=== PATIENT | female | born 1980 | race Caucasian/White ===

== ENCOUNTER 2020-07-10 16:15 | Emergency (ER) | payer OTHER ==
[~2020-07-10] VITALS: Ht 162.6 cm; Wt 70.3 kg
[2020-07-10] MEDS ORDERED: IBUP600 PO (17:55)
[2020-07-10] MEDS ORDERED: Prednisone50 MG PO (17:55)
== END 2020-07-10 18:24 | disposition home or self-care (01) ==
LOC: ER 16:15
DX: M54.12 Radiculopathy, cervical region (principal); Z88.0 Allergy status to penicillin
CPT/HCPCS: 73030; 96372; 99283-25; J1100; J1885

== ENCOUNTER 2021-06-28 06:45 | Emergency (ER) | payer BC, OTHER ==
[~2021-06-28] VITALS: Ht 162.6 cm; Wt 65.8 kg
[~2021-06-28 06:45] MED LIST: IBUP600 PO; Prednisone50 MG PO
[2021-06-28 07:24] LABS: Source, Urine Clean Catch
[2021-06-28 07:27] LABS: Appearance, Urine Clear (Clear); Bilirubin, Urine Neg (Neg); Blood, Urine 1+ (Neg); Color, Urine Yellow (P-Yellow); Glucose Qualitative, Urine Neg (Neg); Ketones, Urine Neg (Neg); Leukocyte Esterase, Urine Neg (Neg); Nitrite, Urine Neg (Neg); Protein, Urine Neg (Neg); Specific Gravity, Urine 1.015 (1.003-1.022); Urobilinogen, Urine NORM (Normal); pH, Urine 6.5 (5.0-8.0)
[2021-06-28 07:38] LABS: Squamous Epithelial Cells Mod /hpf (Few)
[2021-06-28 07:41] LABS: Bacteria Mod /hpf; Hyaline Casts 0-2 /lpf (0-2)
[2021-06-28] MEDS ORDERED: CIPR500 PO (08:50)
[2021-06-28] MEDS ORDERED: PHENA200 PO (08:53)
[2021-06-28] MEDS ORDERED: FLUC150A PO (08:53)
[2021-06-28] MEDS ORDERED: ONDA4ODT MM (08:53)
[2021-06-28] MEDS ORDERED: HYDR1TAB94 PO (08:53)
[2021-06-28] MEDS ORDERED: BUPROPION HCL200 M1 PO (09:04)
[2021-06-28] MEDS ORDERED: Lamictal150 MG PO (09:04)
[2021-06-28] MEDS ORDERED: GABA100 (09:04)
[2021-06-28] MEDS ORDERED: Adderall Xr 2020 MG PO (09:05)
[2021-06-28] MEDS ORDERED: LORA.5 PO (09:05)
[2021-06-28] MEDS ORDERED: VALTREX PO (09:05)
[2021-06-28] MEDS ORDERED: Cetirizine HCl10 MG PO (09:06)
[2021-06-28] MEDS ORDERED: Ventolin/Prove6.7 GM INH (09:06)
[2021-06-28] MEDS ORDERED: Cyclobenzaprine5 MG PO (09:06)
== END 2021-06-28 09:11 | disposition home or self-care (01) ==
LOC: ER 06:45
PROVIDERS: Emergency Medicine
DX: N12 Tubulo-interstitial nephritis, not specified as acute or chronic (principal); Z88.0 Allergy status to penicillin
CPT/HCPCS: 74176; 81001; 81025; 87086; 99284-25; A9270

== ENCOUNTER → 2022-05-27 | Outpatient (CLI) | payer OTHER ==
[~2022-05-27] MED LIST changes: +Adderall Xr 2020 MG PO; +BUPROPION HCL200 M1 PO; +CIPR500 PO; +Cetirizine HCl10 MG PO; +Cyclobenzaprine5 MG PO; +FLUC150A PO; +GABA100; +HYDR1TAB94 PO; +LORA.5 PO; +Lamictal150 MG PO; +ONDA4ODT MM; +PHENA200 PO; +VALTREX PO; +Ventolin/Prove6.7 GM INH
[2022-05-30 03:08] LABS: CHLAMYDIA TRACHOMATIS, NAA Negative (Negative); HPV 16 Negative (Negative); HPV 18 Negative (Negative); HPV OTHER HR TYPES Negative (Negative)
== END | disposition home or self-care (01) ==
LOC: LAB SHORT 16:35 → LAB 16:35
PROVIDERS: Obstetrics & Gynecology
DX: Z01.419 Encounter for gynecological examination (general) (routine) without abnormal findings (principal); Z11.9 Encounter for screening for infectious and parasitic diseases, unspecified; N93.9 Abnormal uterine and vaginal bleeding, unspecified; R10.2 Pelvic and perineal pain
CPT/HCPCS: 87491; 87591; 87624; G0145

== ENCOUNTER → 2022-11-06 | Outpatient (CLI) | payer OTHER ==
[2022-11-07 10:36] LABS: Candida species (DNA Probe) Negative (NEGATIVE); G. vaginalis (DNA Probe) Positive (NEGATIVE); T. vaginalis (DNA Probe) Negative (NEGATIVE)
== END | disposition home or self-care (01) ==
LOC: LAB 15:29 → LAB SHORT 15:29
PROVIDERS: Obstetrics & Gynecology
DX: N76.0 Acute vaginitis (principal)
CPT/HCPCS: 87480; 87510; 87660

== ENCOUNTER → 2024-06-27 | Outpatient (CLI) | payer OTHER ==
[2024-06-27 16:33] LABS: Bacterial Vaginosis PCR Negative (NEGATIVE); Candida glabrata-krusei, PCR NOT DETECTED (NOT DETECT)
[2024-06-27 17:07] LABS: Chlamydia Trachomatis Vaginal NOT DETECTED (NOT DETECT); Neisseria Gonorrhoea Vaginal NOT DETECTED (NOT DETECT)
[2024-06-27 17:25] LABS: Candida Group, PCR DETECTED (NOT DETECT)
[2024-06-30 03:50] LABS: MYCOPLASMA GENITALIUM BY PCR Not Detected; MYCOPLASMA HOMINIS BY PCR Not Detected; UREAPLASMA MYCOPLASMA SOURCE Urine; UREAPLASMA PARVUM BY PCR Detected; UREAPLASMA UREALYTICUM BY PCR Not Detected
== END ==
LOC: LAB SHORT 12:36 → LAB 12:36
PROVIDERS: Obstetrics & Gynecology
DX: Z11.3 Encounter for screening for infections with a predominantly sexual mode of transmission (principal); N76.0 Acute vaginitis
CPT/HCPCS: 81515; 87491; 87563; 87591; 87798